=== PATIENT | male | born 1980 | race Caucasian/White ===

== ENCOUNTER 2021-06-01 10:42 | Emergency (ER) | payer OTHER ==
[~2021-06-01] VITALS: Ht 180.3 cm; Wt 99.8 kg
--- NOTE | 2021-06-01 10:45 | NUR ---
Patient to ER bed 7 to gown for evaluation. Side rails up.
[2021-06-01 10:46] VITALS: BP_SYST 128
--- NOTE | 2021-06-01 10:48 | NUR ---
pt reports having and erection since 0300 today. Pt denies any drug use. pt's secondary complaint is an episode of shrap CP that ocurred yesterday and lasted for approx an hour. Pt denies any CP at the moment
--- NOTE | 2021-06-01 10:55 | NUR ---
ER at bedside examining patient.
[2021-06-01] MEDS ORDERED: ASPIRIN 81 MG TAB.CHEW PO ONE (11:15)
[2021-06-01] MEDS ORDERED: NACL 0.9% 1,000 ML IV ONE (11:15)
[2021-06-01 11:34] LABS: BASOPHILS # (AUTO) 0.1 K/uL (0.0-0.2); BASOPHILS % (AUTO) 1.2 % (0.0-2.0); EOSINOPHILS # (AUTO) 0.4 K/uL (0.0-0.4); EOSINOPHILS % (AUTO) 5.8 % (0.0-4.0); HEMATOCRIT 43.9 % (36-54); HEMOGLOBIN 14.9 g/dL (14.0-18.0); LYMPHOCYTES # (AUTO) 1.9 K/uL (1.0-5.5); LYMPHOCYTES % (AUTO) 29.2 % (20.5-51.5); MEAN CORPUSCULAR HEMOGLOBIN 30 pg (27-31); MEAN CORPUSCULAR HGB CONC 34 % (32-36); MEAN CORPUSCULAR VOLUME 90 fL (79.0-98.0); MONOCYTES # (AUTO) 0.7 K/uL (0.0-1.0); MONOCYTES % (AUTO) 11.4 % (1.7-9.3); NEUTROPHILS # (AUTO) 3.4 K/uL (1.8-7.7); NEUTROPHILS % (AUTO) 52.4 % (40.0-70.0); PLATELET COUNT (AUTO) 362 K/uL (130-430); RED BLOOD CELL COUNT(AUTO) 4.89 MIL/uL (4.2-6.2); RED CELL DISTRIBUTION WIDTH 13.7 % (9.0-15.0); WHITE BLOOD COUNT (AUTO) 6.4 K/uL (4.8-10.8)
[2021-06-01 11:47] LABS: CALCIUM 8.9 mg/dL (8.4-11.0); CREATININE 1.17 mg/dL (0.55-1.30); POTASSIUM 3.9 mmol/L (3.5-5.1)
[2021-06-01 11:48] LABS: PROTHROMBIN TIME 10.3 SECS (9.5-12.5)
[2021-06-01 11:53] LABS: ALBUMIN 3.3 g/dL (3.4-4.8); TOTAL BILIRUBIN 0.5 mg/dL (0.0-1.0)
--- NOTE | 2021-06-01 12:00 | NUR ---
# 20 gauge angiocath placed to LEFT HAND. Use of asceptic technique. Opsite placed over site. Blood return noted. Blood for lab drawn from site. Flushed with 10 cc of normal saline. No evidence of infiltration noted. Patient tolerated well.
[2021-06-01 13:31] LABS: BILIRUBIN,URINE NEGATIVE (NEGATIVE); BLOOD, URINE NEGATIVE (NEGATIVE); CLARITY/URINE CLEAR (CLEAR); COLOR,URINE YELLOW (YELLOW); GLUCOSE,URINE NEGATIVE (NEGATIVE); KETONES,URINE TRACE (NEGATIVE); LEUKOCYTE ESTERASE ,URINE NEGATIVE (NEGATIVE); NITRITE, URINE NEGATIVE (NEGATIVE); PH,URINE 5.5 (5.0-8.0); PROTEIN URINE NEGATIVE (NEGATIVE); UROBILINOGEN,URINE 0.2 (0.2-1.0)
[2021-06-01 13:52] LABS: BARBITURATE, URINE NEGATIVE (NEG <=200); BENZODIAZEPINE, URINE NEGATIVE (NEG <=150); CANNABINOID, URINE NEGATIVE (NEG <=50); COCAINE, URINE NEGATIVE (NEG <=150); METHAMPHETAMINES SCREEN,URINE NEGATIVE (NEG <=500); OPIATE, URINE NEGATIVE (NEG <=100); PHENCYCLIDINE SCREEN,URINE NEGATIVE (NEG <=25); UR TRICYCLIC ANTIDEPRESSANTS POSITIVE (NEG <=300); URINE AMPHETAMINE NEGATIVE (NEG <=500); URINE METHADONE NEGATIVE (NEG <=200); URINE OXYCODONE SCREEN NEGATIVE (NEG <=100); URINE PROPOXYPHENE SCREEN NEGATIVE (NEG <=300)
[2021-06-01 14:34] VITALS: BP_SYST 128
== END 2021-06-01 14:34 | disposition home or self-care (01) ==
LOC: SED 10:42 → EDBD 10:42 → SED 14:34
DX: R07.2 Precordial pain (principal); N48.30 Priapism, unspecified; I10 Essential (primary) hypertension; F31.9 Bipolar disorder, unspecified; F17.290 Nicotine dependence, other tobacco product, uncomplicated; Z79.899 Other long term (current) drug therapy
CPT/HCPCS: 36415; 71045; 80053; 80307; 81003; 84484; 85025; 85610; 93005; 96360; 96361; 99285; J7030; 99284

== ENCOUNTER 2021-07-02 18:08 | Emergency (ER) | payer OTHER ==
[~2021-07-02] VITALS: Ht 177.8 cm; Wt 102.1 kg
[2021-07-02 18:18] VITALS: BP_SYST 143
--- NOTE | 2021-07-02 18:26 | NUR ---
Patient to ER bed 03 to gown for evaluation. Side rails up.
--- NOTE | 2021-07-02 18:52 | NUR ---
PT COMES TO ER WITH C/O PENILE PAIN/DYSURIA AND "SOMETHING NOT NORMAL THERE" X 3 DAYS. ADMITS TO HAVING UNPROTECTED SEX ABOUT TWO MONTHS AGO AND WAS DIAGNOSED WITH SYPHILLIS AND GIVEN A 10 DAY COURSE OF ANTIBIOTICS AND FINISHED PRESCRIBED. SINCE THEN HAS NOT HAD ANY SEXUAL INTERCOURSE BUT NOW SIMILIAR SYMPTOMS HAVE OCCURED. DENIES ANY FEVERS/CHILLS. WAITING FOR ER MD RODRIGUEZ.
--- NOTE | 2021-07-02 19:02 | NUR ---
JEY STANTON IN ROOM WITH ER PHYSICIAN FOR AN IN ROOM SEX WORKER OR ESCORT.
[2021-07-02] MEDS ORDERED: VALA10002 PO (19:22)
[2021-07-02 19:28] VITALS: BP_SYST 143
--- NOTE | 2021-07-02 19:29 | NUR ---
Patient given written and verbal discharge instructions and verbalizes understanding. ER MD discussed with patient the results and treatment provided. Patient in stable condition. ID arm band removed. Rx of VALTREX given. Patient educated on pain management and to follow up with PMD. Pain Scale 0/10. Opportunity for questions provided and answered. Medication side effect fact sheet provided.
== END 2021-07-02 19:28 | disposition home or self-care (01) ==
LOC: SED 18:08
DX: B00.9 Herpesviral infection, unspecified (principal); I10 Essential (primary) hypertension; F31.9 Bipolar disorder, unspecified; Z79.899 Other long term (current) drug therapy
CPT/HCPCS: 99283